=== PATIENT | male | born 1940 | race Caucasian/White ===

== ENCOUNTER 2022-02-13 21:35 | Emergency (ER) | payer MEDICARE ==
[2022-02-13] MEDS ORDERED: Bacitracin Oint 1 GM U/D Packet TOP ONE (22:37)
== END 2022-02-13 23:29 | disposition home or self-care (01) ==
LOC: JP.ED 21:35
DX: S86.811A Strain of other muscle(s) and tendon(s) at lower leg level, right leg, initial encounter (principal); E11.9 Type 2 diabetes mellitus without complications; M25.461 Effusion, right knee; Z79.82 Long term (current) use of aspirin; Z79.899 Other long term (current) drug therapy; W10.9XXA Fall (on) (from) unspecified stairs and steps, initial encounter
CPT/HCPCS: 73564-26-RT; 73564-RT; 99283